=== PATIENT | female | born 1990 | race Caucasian/White ===

== ENCOUNTER 2017-08-11 07:13 | Inpatient (IN) | payer MEDICAID ==
[~2017-08-11] VITALS: Ht 172.7 cm; Wt 93.0 kg
[~2017-08-11 07:13] MED LIST: FERR324T4 PO
[2017-08-11] MEDS ORDERED: LACTATED RINGER'S 1000 ML INJ 1,000 ML IV PRN (07:50)
[2017-08-11] MEDS ORDERED: LIDOCAINE HCL 1% 50 ML VIAL I-DERMAL PRN (08:00)
[2017-08-11] MEDS ORDERED: CITRIC ACID-SODIUM CITRATE LIQ 30 ML UDC PO SCH (08:00)
[2017-08-11] MEDS ORDERED: SODIUM CHLORID 0.9% 500 ML INJ 500 ML IV PRN (08:00)
[2017-08-11] MEDS ORDERED: OXYTOCIN 30 UNITS-500ML PREMIX 500 ML IV PRN (08:00)
[2017-08-11] MEDS ORDERED: LIDOCAINE HCL 1% 50 ML VIAL INFIL PRN (08:00)
[2017-08-11] MEDS ORDERED: OXYTOCIN 30 UNITS-500ML PREMIX 500 ML IV ONE (08:00)
[2017-08-11] MEDS ORDERED: MINERAL OIL 10 ML VIAL TOPICAL PRN (08:00)
--- NOTE | 2017-08-11 08:06 | HHI.HP ---
HPI Chief Complaint 38 1/2 week IUP with substance use disorder and history of thoracotomy Date Seen: August 11, 2017 Time Seen: 07:59 Travel History International Travel<30 Days: No Contact w/Intl Traveler<30Days: No Known Affected Area: No History of Present Illness HPI 26 yo wf at 38 1/2 weeks EGA who is residing at [facility] and on 4 mg TID brought in for induction. 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 Transferred from Detention to [facility]. Has been compliant at [facility]. surveillance reassuring. Cervix Dwyer score 6. GFM No N,V,CORONADO, blurred vision , RUQT No leaking, bleeding. No infection during labor. Weeks Gestation: 38 Para: 2 : 3 Last Menstrual Period: August 11, 2017 History Past Medical History Narrative Medical history of thoracotomy has hepatitis C Obstetric History Obstetric History 2 term SVDs live with family Past Surgical History Narrative Surgical thoracotomy Family History Family History: Negative Social History Alcohol Use: No Tobacco Use: No Substance Abuse: No Allergies-Medications (Allergen,Severity, Reaction): Coded Allergies: Sulfa (Sulfonamide Antibiotics) (Unverified Allergy, Severe, HIVES THROAT SWELLS, 10/27/16) amoxicillin (Unverified Allergy, Severe, HIVES, THROAT SWELLS, 10/27/16) cefaclor (Unverified Allergy, Severe, HIVES, THROAT SWELLS, 10/27/16) Home Meds Reported Medications Ferrous Sulfate (Ferrous Sulfate) 325 Mg Tab, 325 MG PO DAILY 06/10/10 Review of Systems General / Constitutional: No: Fever, Weight Gain, Chills, Other Eyes: No: Diploplia, Blurred Vision, Visual changes, Pain, Photophobia HENT: No: Headaches, Vertigo, Lightheadedness Cardiovascular: No: Irregular Rhythm, Chest Pain or Discomfort, Palpitations, Tachycardia, Syncope, Varicosities, Edema, Cyanosis Respiratory: No: Cough, Short of Breath, Other Gastrointestinal: No: Nausea, Vomiting, Diarrhea Genitourinary: No: Decreased Urinary Output, Oliguria Musculoskeletal: No: Limited ROM, Weakness, Cramping, Edema, Pain Skin: No Rash, No Itching, No Dryness, No Lumps, No Change in Pigmentation, No Change in Nails, No Alopecia, No Lesions Neurologic: No: Weakness, Dizziness, Syncope, Focal Abnormalities, Coordination Problem, Headache, Slurred Speech, Seizures Psychiatric: No: Depression, Suicidal Ideations, Homicidal Ideation Endocrine: No: Heat Intolerance, Cold Intolerance, Polydipsia, Polyuria, Other Physical Exam Narrative GENERAL: Well-nourished, well-developed patient. SKIN: Warm and dry. HEAD: Normocephalic and atraumatic. EYES: No scleral icterus. No injection or drainage. ENT: No nasal drainage noted. Mucous membranes pink. Airway patent. NECK: Supple, trachea midline. No JVD. CARDIOVASCULAR: Regular rate and rhythm without murmurs, gallops, or rubs. RESPIRATORY: Breath sounds equal bilaterally. No accessory muscle use. BREASTS: Bilateral exam showed no masses , no retractions, no nipple discharge. ABDOMEN/GI: Abdomen soft, non-tender, bowel sounds present, no rebound, no guarding Gravid to [-] weeks size 38 cm 3/80/-1 EFW 7 pounds pelvis proven and clinically adequate EXTREMITIES: No cyanosis or edema. BACK: Nontender without obvious deformity. No CVA tenderness. NEUROLOGICAL: Awake and alert. Motor and sensory grossly within normal limits. Five out of 5 muscle strength in all muscle groups. Normal speech. Caprini VTE Risk Assessment Caprini VTE Risk Assessment: No/Low Risk (score <= 1) Caprini Risk Assessment Model Point Value = 1 Point Value = 2 Point Value = 3 Point Value = 5 Age 41-60 Minor surgery BMI > 25 kg/m2 Swollen legs Varicose veins or History of unexplained or recurrent spontaneous Oral contraceptives or hormone replacement Sepsis (< 1 month) Serious lung disease, including pneumonia (< 1 month) Abnormal pulmonary function Acute myocardial infarction Congestive heart failure (< 1 month) History of inflammatory bowel disease Medical patient at bed rest Age 61-74 Arthroscopic surgery Major open surgery (> 45 min) Laparoscopic surgery (> 45 min) Malignancy Confined to bed (> 72 hours) Immobilizing plaster cast Central venous access Age >= 75 History of VTE Family history of VTE Factor V Leiden Prothrombin [id number] Lupus anticoagulant Anticardiolipin antibodies Elevated serum homocysteine Heparin-induced thrombocytopenia Other congenital or acquired thrombophilia Stroke (< 1 month) Elective arthroplasty Hip, pelvis, or leg fracture Acute spinal cord injury (< 1 month) Prophylaxis Regimen Total Risk Factor Score Risk Level Prophylaxis Regimen 0-1 Low Early ambulation 2 Moderate Order ONE of the following: *Sequential Compression Device (SCD) *Heparin 5000 units SQ BID 3-4 Higher Order ONE of the following medications: *Heparin 5000 units SQ TID *Enoxaparin/Lovenox 40 mg SQ daily (WT < 150 kg, CrCl > 30 mL/min) *Enoxaparin/Lovenox 30 mg SQ daily (WT < 150 kg, CrCl > 10-29 mL/min) *Enoxaparin/Lovenox 30 mg SQ BID (WT < 150 kg, CrCl > 30 mL/min) AND/OR *Sequential Compression Device (SCD) 5 or more Highest Order ONE of the following medications: *Heparin 5000 units SQ TID (Preferred with Epidurals) *Enoxaparin/Lovenox 40 mg SQ daily (WT < 150 kg, CrCl > 30 mL/min) *Enoxaparin/Lovenox 30 mg SQ daily (WT < 150 kg, CrCl > 10-29 mL/min) *Enoxaparin/Lovenox 30 mg SQ BID (WT < 150 kg, CrCl > 30 mL/min) AND *Sequential Compression Device (SCD) Data Data Orders Orders Admit To Inpatient (08/11/17 ) Code Status (08/11/17 07:50) Vital Signs (Adult) .Per protocol (08/11/17 07:50) Activity Oob Ad Asha (08/11/17 07:50) Heart (08/11/17 07:50) Amnioinfusion (08/11/17 07:50) Urinary Catheter Management .ONCE (08/11/17 07:50) Lactated Ringer's 1000 Ml Inj (Lr 1000 M (08/11/17 08:00) Lactated Ringer's 1000 Ml Inj (Lr 1000 M (08/11/17 07:50) Sodium Chlorid 0.9% 500 Ml Inj (Ns 500 M (08/11/17 08:00) Sodium Chlor 0.9% 1000 Ml Inj (Ns 1000 M (08/11/17 08:10) Lidocaine 1% Inj (50 Ml) (Xylocaine 1% I (08/11/17 08:00) Citric Acid-Sodium Citrate Liq (Bicitra (08/11/17 08:00) Fentanyl Inj (Fentanyl Inj) (08/11/17 08:00) Fentanyl Inj (Fentanyl Inj) (08/11/17 08:00) Clindamycin Inj (Cleocin Inj) (08/11/17 10:00) Complete Blood Count With Diff (08/11/17 07:50) Hold Clot (08/11/17 07:50) Abo/Rh Blood Type (08/11/17 07:50) Urinalysis - C+S If Indicated (08/11/17 07:50) Drug Screen, Random Urine (08/11/17 07:50) Ob/Psych Drug Screen, Urine (08/11/17 07:50) Resp Oxygen Non Rebreathe Mask (08/11/17 ) ^ Epidural / Intrathecal Infus (08/11/17 07:50) Oxytocin 30 Units-500ml Premix (Pitocin (08/11/17 08:00) Lidocaine 1% Inj (50 Ml) (Xylocaine 1% I (08/11/17 08:00) Light Mineral Oil (Muri-Lube Oil) (08/11/17 08:00) ^ Non Stress Test (08/11/17 07:50) Response To Medication .Post New Med Administration, Reaction (08/11/17 07:50) ^ Discontinue Medication (08/11/17 07:50) Oxytocin 30 Units-500ml Premix (Pitocin (08/11/17 08:00) Inpatient Certification (08/11/17 ) Specimen To Be Collected PRN (08/11/17 07:50) Specimen To Be Collected PRN (08/11/17 07:50) Nasal Mrsa/Sa Pcr (08/11/17 07:55) Assessment/Plan Assessment and Plan will prophylax with antibiotic due to history of sepsis anticipate AROM this am augment as needed. Jessica Parish MD August 11, 2017 08:06
[2017-08-11 08:07] LABS: AUTOMATED NEUTROPHIL # 2.5 TH/MM3 (1.8-7.7); BASOPHIL % 0.5 % (0.0-2.0); EOSINOPHIL # 0.1 TH/MM3 (0-0.4); EOSINOPHIL % 1.8 % (0.0-4.0); HEMATOCRIT 33.4 % (35.0-46.0); HEMOGLOBIN 11.7 GM/DL (11.6-15.3); LYMPH % 44.9 % (9.0-44.0); LYMPHOCYTE # 2.5 TH/MM3 (1.0-4.8); MEAN CELL VOLUME 86.9 FL (80.0-100.0); MEAN CORPUSCULAR HEMOGLOBIN 30.5 PG (27.0-34.0); MEAN CORPUSCULAR HGB CONC 35.1 % (32.0-36.0); MEAN PLATELET VOLUME 9.4 FL (7.0-11.0); MONOCYTE # 0.5 TH/MM3 (0-0.9); NEUT % 43.8 % (16.0-70.0); PLATELET COUNT 188 TH/MM3 (150-450); RED BLOOD COUNT 3.84 MIL/MM3 (4.00-5.30); RED CELL DISTRIBUTION WIDTH 13.6 % (11.6-17.2); WHITE BLOOD COUNT 5.6 TH/MM3 (4.0-11.0)
[2017-08-11] MEDS ORDERED: SODIUM CHLOR 0.9% 1000 ML INJ 1,000 ML IV PRN (08:10)
[2017-08-11 08:12] LABS: BACTERIA, URINE RARE /hpf; BILIRUBIN, URINE NEG (NEG); BLOOD, URINE NEG (NEG); GLUCOSE,URINE NEG (NEG); KETONE, URINE NEG (NEG); NITRITE,URINE NEG (NEG); SQUAMOUS EPITHELIAL CELL URINE 7 /hpf (0-5); URINE COLOR YELLOW (YELLW/STRAW); URINE LEUKOCYTE ESTERASE TRACE (NEG)
[2017-08-11] MEDS: LACTATED RINGER'S 1000 ML INJ 1,000 ML IV SCH ×2 (09:36→23:00)
[2017-08-11] MEDS: CLINDAMYCIN 900 MG/NS PREMIX 50 ML IV SCH ×2 (09:37→18:12)
[2017-08-11] MEDS ORDERED: CLINDAMYCIN INJ 900 MG in SODIUM CHLORIDE 0.9% INJ 100 ML IV SCH (10:00)
[2017-08-11] MEDS ORDERED: PILL SPLITTER OTHER PRN (16:15)
[2017-08-11] MEDS ORDERED: BUPRENORPHINE HCL 8 MG SUBLINGUAL TAB SL SCH ×2 (16:15→18:00)
[2017-08-11] MEDS: BUPRENORPHINE HCL 8 MG SUBLINGUAL TAB SL SCH ×2 (17:16→21:08)
--- NOTE | 2017-08-11 18:48 | PD.LABORPN ---
Subjective Subjective getting painful slow to get labor started currently UCs every 3 minutes and moderate cervic 80/3+/-2 anticipate Objective Objective Pelvic Exam: Cervix: [-] Dilatation: [-] Effacement: [-] Station: [-] Presentation: [-] Membranes: [intact or ruptured] Uterine Contractions: [-] FHT's: Category: [-] Baseline: [-] Reactive: [-] Variability: [-] Decels: [-] Weeks Gestation: 38 Jessica Parish MD August 11, 2017 18:48
[2017-08-11] MEDS ORDERED: ACETAMINOPHEN 325 MG TAB PO PRN (19:45)
[2017-08-11] MEDS ORDERED: LIDOCAINE 1.5%/EPINEPHrine 1:200,000 PF 5 ML AMP ONE ×2 (20:55→20:56)
[2017-08-11] MEDS ORDERED: fentaNYL 2MCG-BUPIV 0.125% INJ 150 ML EPIDURAL ONE (20:57)
[2017-08-11] MEDS ORDERED: ACETAMINOPHEN 1000 MG/100 ML 100 ML IV ONE (21:30)
--- NOTE | 2017-08-12 01:01 | PD.LABORPN ---
Subjective Subjective comfortable with epidural elevated temp improved with ofirmev on clindomycin since beginning of induction as SBE prophylaxis marked tachycardia resolved with amnio infusion cervix 7+ with puffy anterior /80% effacement position suggests resolution of significant assynclitism continue to monitor while slow but steady change anticipate Objective Objective Pelvic Exam: Cervix: [-] Dilatation: [-] Effacement: [-] Station: [-] Presentation: [-] Membranes: [intact or ruptured] Uterine Contractions: [-] FHT's: Category: [-] Baseline: [-] Reactive: [-] Variability: [-] Decels: [-] Weeks Gestation: 38 Jessica Parish MD August 12, 2017 01:01
[2017-08-12] MEDS: CLINDAMYCIN 900 MG/NS PREMIX 50 ML IV SCH (01:30)
[2017-08-12] MEDS ORDERED: LIDOCAINE HCL 1.5% PF 20 ML AMP ONE (02:11)
[2017-08-12] MEDS ORDERED: ePHEDrine/NS 25 MG/5 ML SYRINGE ONE (02:16)
[2017-08-12] MEDS: LACTATED RINGER'S 1000 ML INJ 1,000 ML IV SCH (02:21)
[2017-08-12] MEDS ORDERED: ACETAMINOPHEN 1000 MG/100 ML 100 ML IV ONE (04:15)
[2017-08-12] MEDS ORDERED: diphenhydrAMINE HCL 50 MG/ML VIAL IV PUSH ONE (04:15)
[2017-08-12] MEDS ORDERED: ONDANSETRON ODT 4 MG TAB PO ONE (04:30)
[2017-08-12] MEDS ORDERED: CLINDAMYCIN 600 MG/NS PREMIX 50 ML IV SCH (06:00)
--- NOTE | 2017-08-12 06:16 | PD.OB.DELI ---
Weeks gestation: 38 Gest age assessed date: August 11, 2017 Gest age assessed time: 12:00 Active labor start date: August 12, 2017 Active labor start time: 06:09 Medical induction of labor?: Yes Medical induction start date: August 12, 2017 Medical induction start time: 18:00 Artificial rupture of membrane: Yes Artificial ROM date: August 11, 2017 Artifical ROM time: 18:00 Anesthesia: Epidural Episiotomy: None Vaginal Delivery: Normal Presentation: Occiput anterior Nuchal Cord: None Delayed cord clamping (45 sec): Yes : Male Delivery date: August 12, 2017 Delivery time: 06:11 One Minute : 8 Five Minute : 9 Weight: 6 Placenta: Spontaneous delivery Laceration: No lacerations Estimated blood loss: 200 Jessica Parish MD August 12, 2017 06:16
[2017-08-12] MEDS ORDERED: BENZOCAINE 20% TOPICAL SPRAY 60 ML CAN TOPICAL PRN (06:30)
[2017-08-12] MEDS ORDERED: DOCUSATE SODIUM 50 MG/SENNA 8.6 MG TAB PO PRN (06:30)
[2017-08-12] MEDS ORDERED: SODIUM CHLORIDE 0.9% FLUSH 10 ML FLUSH IV FLUSH PRN (06:30)
[2017-08-12] MEDS ORDERED: WITCH HAZEL 50%/GLYCERIN 12.5% 40 PAD JAR TOPICAL PRN (06:30)
[2017-08-12] MEDS ORDERED: ALUMINUM/MAGNESIUM/SIMETH 30 ML CUP PO PRN (06:30)
[2017-08-12] MEDS ORDERED: OXYTOCIN 30 UNITS-500ML PREMIX 500 ML IV SCH (06:30)
[2017-08-12] MEDS ORDERED: ONDANSETRON ODT 4 MG TAB PO PRN (06:30)
[2017-08-12] MEDS ORDERED: ZOLPIDEM TARTRATE 5 MG TAB PO PRN (06:30)
[2017-08-12] MEDS: IBUPROFEN 800 MG TAB PO PRN ×3 (06:37→22:16)
[2017-08-12] MEDS ORDERED: SODIUM CHLORIDE 0.9% FLUSH 10 ML FLUSH IV FLUSH SCH (09:00)
[2017-08-12] MEDS ORDERED: BUPRENORPHINE HCL 8 MG SUBLINGUAL TAB SL SCH (09:00)
[2017-08-12] MEDS: BUPRENORPHINE HCL 8 MG SUBLINGUAL TAB SL SCH ×3 (09:05→18:03)
[2017-08-12] MEDS ORDERED: BUPR8SUB SL (11:06)
--- NOTE | 2017-08-12 11:06 | HHI.DCPOC ---
Discharge Care Plan Report Symptoms to Your Doctor -Temperature above 100.5 degrees -Redness, of incision or excessive or foul smelling drainage -Unusual pain or calf pain -Increased vaginal bleeding -Painful or difficulty urinating -Feelings of extreme sadness or anxiety after 2 weeks Goals to Promote Your Health * To prevent worsening of your condition and complications * To maintain your health at the optimal level Directions to Meet Your Goals Take your medications as prescribed Follow your dietary instruction Follow activity as directed Ensure plenty of rest for recovery Drink fluids for hydration Keep your appointments as scheduled Take your immunizations and boosters as scheduled If your symptoms worsen call your PCP, if no PCP go to Urgent Care Center or Emergency Room Smoking is Dangerous to Your Health. Avoid second hand smoke Call the 24-hour crisis hotline for domestic abuse at Jessica Parish MD August 12, 2017 11:06
[2017-08-12] MEDS ORDERED: MEASLES, MUMPS, RUBELLA VACCINE 0.5 ML VIAL SQ ONE (16:00)
[2017-08-12] MEDS ORDERED: DIPHTH/TETANUS/ACEL PERTUSSIS (BOOSTER) 0.5 ML VIAL/PFS IM ONE (16:00)
[2017-08-12] MEDS: CLINDAMYCIN 600 MG/NS PREMIX 50 ML IV SCH (18:03)
[2017-08-12] MEDS: ACETAMINOPHEN 325 MG TAB PO PRN ×2 (18:03→22:16)
[2017-08-12 20:35] VITALS: BP 105/66; PULSE 94; RESP 18; TEMP 98.1
[2017-08-13] MEDS: ACETAMINOPHEN 325 MG TAB PO PRN ×5 (02:12→20:56)
[2017-08-13] MEDS: CLINDAMYCIN 600 MG/NS PREMIX 50 ML IV SCH (02:12)
[2017-08-13] MEDS: IBUPROFEN 800 MG TAB PO PRN ×2 (07:02→16:59)
--- NOTE | 2017-08-13 08:40 | HHI.OB ---
Subjective Post Day: 1 Remarks offered no complaints Objective Vitals/I&O Vital Signs Date Time Temp Pulse Resp B/P (MAP) Pulse Ox O2 Delivery O2 Flow Rate FiO2 08/12/17 20:35 98.1 94 18 105/66 (79) Objective Remarks GENERAL: Well-nourished, well-developed patient. CARDIOVASCULAR: Regular rate and rhythm without murmurs, gallops, or rubs. RESPIRATORY: Breath sounds equal bilaterally. No accessory muscle use. ABDOMEN/GI: Abdomen soft, non-tender. Fundus: Firm, non-tender at umbilicus. GENITOURINARY: Light to moderate bleeding. EXTREMITIES: No cyanosis or edema, non-tender, without signs of DVT. Medications and IVs Current Medications Medications (Trade) Dose Ordered Sig/Lauri Route Start Time Stop Time Status Last Admin (Pill Splitter) 1 ea UNSCH PRN OTHER 08/11/17 16:15 (NS Flush) 2 ml BID IV FLUSH 08/12/17 09:00 (NS Flush) 2 ml UNSCH PRN IV FLUSH 08/12/17 06:30 (Tylenol) 650 mg Q4H PRN PO 08/12/17 06:30 08/13/17 07:02 (Motrin) 800 mg Q8H PRN PO 08/12/17 06:30 08/13/17 07:02 (Americaine 20% Top Spr) 1 spray Q4H PRN TOPICAL 08/12/17 06:30 08/12/17 06:36 (Tucks Pads) 1 applic QID PRN TOPICAL 08/12/17 06:30 08/12/17 06:36 (Pattie-Colace) 2 tab Q12H PRN PO 08/12/17 06:30 (Ambien) 5 mg HS PRN PO 08/12/17 06:30 (Mag-Al Plus Susp Liq) 15 ml Q8H PRN PO 08/12/17 06:30 (Zofran Odt) 4 mg Q6H PRN PO 08/12/17 06:30 (Buprenorphine) 8 mg TID SL 08/12/17 09:00 08/12/17 18:03 Clindamycin/ Sodium Chloride 50 ml @ 100 mls/hr Q8H IV 08/12/17 17:00 5/31/18 18:03 Assessment/Plan Assessment and Plan s/p PPD #1 WARM, h/o thoracotomy (sepsis). Discharge Planning routine Attending Attestation pt seen by Fartun Capellan MD Aug 13, 2017 08:40
[2017-08-13] MEDS: BUPRENORPHINE HCL 8 MG SUBLINGUAL TAB SL SCH ×3 (08:55→18:39)
[2017-08-13 21:10] VITALS: BP 114/66; PULSE 72; RESP 18; TEMP 98.3
[2017-08-14] MEDS: ACETAMINOPHEN 325 MG TAB PO PRN ×2 (01:32→10:10)
[2017-08-14] MEDS: IBUPROFEN 800 MG TAB PO PRN ×2 (01:32→10:10)
--- NOTE | 2017-08-14 08:58 | HHI.OB ---
Subjective Post Day: 2 Remarks recovering well, will try to pump Objective Vitals/I&O Vital Signs Date Time Temp Pulse Resp B/P (MAP) Pulse Ox O2 Delivery O2 Flow Rate FiO2 08/13/17 21:10 98.3 72 18 114/66 (82) Objective Remarks GENERAL: Well-nourished, well-developed patient. CARDIOVASCULAR: Regular rate and rhythm without murmurs, gallops, or rubs. RESPIRATORY: Breath sounds equal bilaterally. No accessory muscle use. ABDOMEN/GI: Abdomen soft, non-tender. Fundus: Firm, non-tender at umbilicus. GENITOURINARY: Light to moderate bleeding. EXTREMITIES: No cyanosis or edema, non-tender, without signs of DVT. Medications and IVs Current Medications Medications (Trade) Dose Ordered Sig/Lauri Route Start Time Stop Time Status Last Admin (Pill Splitter) 1 ea UNSCH PRN OTHER 08/11/17 16:15 (NS Flush) 2 ml BID IV FLUSH 08/12/17 09:00 (NS Flush) 2 ml UNSCH PRN IV FLUSH 08/12/17 06:30 (Tylenol) 650 mg Q4H PRN PO 08/12/17 06:30 08/14/17 01:32 (Motrin) 800 mg Q8H PRN PO 08/12/17 06:30 08/14/17 01:32 (Americaine 20% Top Spr) 1 spray Q4H PRN TOPICAL 08/12/17 06:30 08/12/17 06:36 (Tucks Pads) 1 applic QID PRN TOPICAL 08/12/17 06:30 08/12/17 06:36 (Pattie-Colace) 2 tab Q12H PRN PO 08/12/17 06:30 (Ambien) 5 mg HS PRN PO 08/12/17 06:30 (Mag-Al Plus Susp Liq) 15 ml Q8H PRN PO 08/12/17 06:30 (Zofran Odt) 4 mg Q6H PRN PO 08/12/17 06:30 (Buprenorphine) 8 mg TID SL 08/12/17 09:00 08/13/17 18:39 Clindamycin/ Sodium Chloride 50 ml @ 100 mls/hr Q8H IV 08/12/17 17:00 08/12/17 18:03 Assessment/Plan Assessment and Plan s/p PPD #2 WARM, h/o thoracotomy (sepsis). Discharge Planning routine with family to WARM Attending Attestation pt seen by Fartun Capellan MD Aug 14, 2017 08:58
[2017-08-14] MEDS: BUPRENORPHINE HCL 8 MG SUBLINGUAL TAB SL SCH (10:09)
== END 2017-08-14 12:12 | disposition home or self-care (01) | DRG 774 ==
LOC: H2EA 07:13 → H1EA 08-12 07:31
PROVIDERS: ADMIT Obstetrics & Gynecology; ATTEND Obstetrics & Gynecology
PROC: 3E033VJ Introduction of Other Hormone into Peripheral Vein, Percutaneous Approach (ICD-10-PCS; 2017-08-11)
PROC: 10E0XZZ Delivery of Products of Conception, External Approach (ICD-10-PCS; principal; 2017-08-12)
DX: O99.324 Drug use complicating childbirth (principal); O98.42 Viral hepatitis complicating childbirth; B19.20 Unspecified viral hepatitis C without hepatic coma; F19.10 Other psychoactive substance abuse, uncomplicated; Z37.0 Single live birth; Z3A.38 38 weeks gestation of pregnancy; Z88.1 Allergy status to other antibiotic agents; Z88.2 Allergy status to sulfonamides
CPT/HCPCS: 59025; 80307; 81001; 85025; 86592; 87491; 87591; 87641; 90715; J0131; J1200; J2590; J3010; J7030; J7120